=== PATIENT | female | born 1970 | race Caucasian/White ===

== ENCOUNTER 2022-07-25 13:09 | Outpatient (CLI) | payer OTHER, SELFPAY ==
[2022-07-25 13:55] LABS: Chloride* 103 mmol/L (96-114)
[2022-07-25 13:56] LABS: Potassium* 4.2 mmol/L (3.6-5.1); Sodium* 141 mmol/L (135-149)
[2022-07-25 13:58] LABS: Carbon Dioxide* 32 mmol/L (20-32); Cholesterol* 179 mg/dL (90-199); Creatinine* 0.8 mg/dL (0.5-1.5); Estimated Glomerular Filt Rate 88 ml/min
[2022-07-25 13:59] LABS: Blood Urea Nitrogen* 21 mg/dL (7-30); Calcium* 9.6 mg/dL (8.4-10.6); Glucose* 85 mg/dL (60-115); HDL Cholesterol* 66 mg/dL (>=50); LDL Cholesterol Calculated 100 mg/dL (<100); Triglycerides* 66 mg/dL (40-149)
== END 2022-07-25 13:10 | disposition home or self-care (01) ==
PROVIDERS: PCP Emergency Medicine; Visit Provider Emergency Medicine
DX: Z01.419 Encounter for gynecological examination (general) (routine) without abnormal findings (principal); Z13.6 Encounter for screening for cardiovascular disorders
CPT/HCPCS: 80048; 80061

== ENCOUNTER 2022-09-06 17:05 | Outpatient (CLI) | payer OTHER, SELFPAY ==
--- NOTE | 2022-09-06 17:15 | CRLHL7_ITS ---
For Patients: As a result of the Cures Act, medical imaging exams and procedure reports are released immediately into your electronic medical record. You may view this report before your referring provider. If you have questions, please contact your health care provider. BILATERAL DIGITAL SCREENING MAMMOGRAM WITH TOMOSYNTHESIS AND COMPUTER-AIDED DETECTION CLINICAL HISTORY: Routine screening exam. COMPARISON: 06/25/2021, 06/02/2020, 05/27/2019, 03/26/2018. TECHNIQUE: Digital mammogram in CC and MLO projections including computer-aided detection (CAD). Tomosynthesis utilized. BREAST COMPOSITION: The breasts are heterogeneously dense, which may obscure small masses. FINDINGS: RIGHT Breast: No suspicious findings. LEFT Breast: Focal asymmetric density lateral LEFT breast CC view only 10 cm from the nipple. IMPRESSION: LEFT breast asymmetry/mass. RECOMMENDATIONS: Additional mammographic views of the LEFT breast including 3D spot compression CC, 3D true lateral. LEFT breast ultrasound may also be required. BI-RADS Category 0: Incomplete: Need Additional Imaging Evaluation and/or Prior Mammograms for Comparison [facility] will contact the patient for follow-up. A lay language report of this examination will be provided to the patient. Dictated by Adner Edgar MD @ 09/07/2022 12:48:12 PM jj/Dictated by: Ander Edgar MD @ 09/07/2022 12:48:00 PM (Electronically Signed)
== END 2022-09-06 17:06 | disposition home or self-care (01) ==
LOC: MAMMO 17:06
PROVIDERS: PCP Emergency Medicine; Visit Provider Emergency Medicine
DX: Z12.31 Encounter for screening mammogram for malignant neoplasm of breast (principal); N63.20 Unspecified lump in the left breast, unspecified quadrant; R92.2 Inconclusive mammogram
CPT/HCPCS: 77063; 77067

== ENCOUNTER 2022-09-21 08:39 | Outpatient (CLI) | payer OTHER, SELFPAY ==
--- NOTE | 2022-09-21 08:45 | CRLHL7_ITS ---
For Patients: As a result of the Cures Act, medical imaging exams and procedure reports are released immediately into your electronic medical record. You may view this report before your referring provider. If you have questions, please contact your health care provider. DIGITAL DIAGNOSTIC LEFT MAMMOGRAM USING TOMOSYNTHESIS AND COMPUTER-AIDED DETECTION CLINICAL HISTORY: LEFT breast mass/asymmetry. COMPARISON: 09/06/2022. TECHNIQUE: Digital LEFT mammogram in two projections. Tomosynthesis and CAD utilized. BREAST COMPOSITION: The breast is heterogeneously dense, which may obscure small masses. FINDINGS: 3D true lateral and 3D spot compression CC LEFT breast mammogram images submitted. No suspicious masses or architectural distortion. No suspicious calcifications or adenopathy. IMPRESSION: Normal additional mammogram images LEFT breast. No evidence of malignancy. RECOMMENDATIONS: Annual BILATERAL screening mammography. Results and recommendations discussed with the patient. BI-RADS Category 2: Benign A lay language report of this examination will be provided to the patient. Dictated by Ander Edgar MD @ 09/21/2022 10:14:42 AM jj/Dictated by: Ander Edgar MD @ 09/21/2022 10:14:00 AM (Electronically Signed)
== END 2022-09-21 08:40 | disposition home or self-care (01) ==
LOC: MAMMO 08:40
PROVIDERS: PCP Emergency Medicine; Visit Provider Emergency Medicine
DX: N63.20 Unspecified lump in the left breast, unspecified quadrant (principal); R92.8 Other abnormal and inconclusive findings on diagnostic imaging of breast; R92.2 Inconclusive mammogram
CPT/HCPCS: 77065; G0279

== ENCOUNTER 2023-09-06 08:44 | Outpatient (CLI) | payer OTHER, SELFPAY | END 2023-09-06 08:45 | disposition home or self-care (01) | PROVIDERS: PCP Emergency Medicine; Visit Provider Emergency Medicine | DX: E55.9 Vitamin D deficiency, unspecified (principal); N92.6 Irregular menstruation, unspecified; Z13.220 Encounter for screening for lipoid disorders | CPT/HCPCS: 80048; 80061; 82306; 84443 ==

== ENCOUNTER 2023-09-13 07:04 | Outpatient (CLI) | payer OTHER, SELFPAY ==
--- NOTE | 2023-09-13 07:15 | CRLHL7_ITS ---
For Patients: As a result of the Century Cures Act, medical imaging exams and procedure reports are released immediately into your electronic medical record. You may view this report before your referring provider. If you have questions, please contact your health care provider. INDICATION: rt adnexa fullness COMPARISON: 08/19/2021 TECHNIQUE: 2D taylor scale and color Doppler images were acquired of the pelvis using a transabdominal and transvaginal approach. FINDINGS: Sonographic images demonstrate a normal size and smooth outer contour of the uterus. Uterus measures 8.8 cm in length by 4.9 cm in AP diameter by 5.3 cm in transverse dimension. Intramural fibroid is present in the uterine fundus measuring 1.8 x 1.8 x 1.7 cm. The endometrial lining measures 3 mm in composite thickness. Incidental echogenic focus is present adjacent to the endometrium. The right ovary measures 3.0 x 1.4 x 2.1 cm in size and the left ovary measures 3.2 x 1.4 x 1.5 cm. The ovaries demonstrate normal arterial and venous blood flow on color Doppler analysis. There are no suspicious fluid collections within the cul-de-sac. IMPRESSION: Normal right ovary. No adnexal mass, ovarian torsion or excess pelvic free fluid. Dictated by Ander Edgar MD @ 09/13/2023 10:03:18 AM (Electronically Signed)
--- NOTE | 2023-09-13 07:45 | CRLHL7_ITS ---
For Patients: As a result of the Century Cures Act, medical imaging exams and procedure reports are released immediately into your electronic medical record. You may view this report before your referring provider. If you have questions, please contact your health care provider. BILATERAL SCREENING MAMMOGRAM WITH COMPUTER-AIDED DETECTION AND TOMOSYNTHESIS TECHNIQUE: CC and MLO views were obtained. These mammographic images have been obtained using full-field digital technique. These mammographic images were interpreted with the benefit of computer-aided detection. Breast Tomosynthesis was used in this interpretation. COMPARISON FILM: 09/21/22, 09/06/22, 06/25/21. FINDINGS: There are scattered areas of fibroglandular density IMPRESSION: There is no radiographic evidence for malignancy. ASSESSMENT: BI-RADS Category 2: Benign RECOMMENDATION: Routine screening mammogram in 1 year. A lay language report of this examination will be provided to the patient. Ander Edgar M.D. Diagnostic Radiologist [email or web address] [email or web address]/Dictated by: Ander Edgar MD @ 09/14/2023 10:48:00 AM (Electronically Signed)
== END 2023-09-13 07:05 | disposition home or self-care (01) ==
LOC: US 07:05
PROVIDERS: PCP Emergency Medicine; Visit Provider Emergency Medicine
DX: N94.9 Unspecified condition associated with female genital organs and menstrual cycle (principal); Z12.31 Encounter for screening mammogram for malignant neoplasm of breast
CPT/HCPCS: 76830; 76856; 77063; 77067

== ENCOUNTER 2024-06-24 15:51 | Outpatient (CLI) | payer OTHER, SELFPAY | END 2024-06-24 15:52 | disposition home or self-care (01) | LOC: NFLDREF 06-28 21:08 | PROVIDERS: PCP Emergency Medicine; Referring Provider Emergency Medicine; Visit Provider Emergency Medicine | DX: R73.09 Other abnormal glucose (principal); R79.89 Other specified abnormal findings of blood chemistry; R00.2 Palpitations | CPT/HCPCS: 82565; 84443 ==

== ENCOUNTER 2024-10-01 08:59 | Outpatient (CLI) | payer OTHER, SELFPAY | END 2024-10-01 09:00 | disposition home or self-care (01) | PROVIDERS: PCP Emergency Medicine; Visit Provider Emergency Medicine | DX: E55.9 Vitamin D deficiency, unspecified (principal); R79.89 Other specified abnormal findings of blood chemistry; R59.0 Localized enlarged lymph nodes; Z13.1 Encounter for screening for diabetes mellitus; Z13.6 Encounter for screening for cardiovascular disorders | CPT/HCPCS: 80061; 82947; 86140 ==

== ENCOUNTER 2024-10-02 15:12 | Outpatient (CLI) | payer OTHER, SELFPAY | END 2024-10-02 15:13 | disposition home or self-care (01) | LOC: MAMMO 15:13 | PROVIDERS: PCP Emergency Medicine; Visit Provider Emergency Medicine | DX: Z12.31 Encounter for screening mammogram for malignant neoplasm of breast (principal); N63.20 Unspecified lump in the left breast, unspecified quadrant; R92.333 Mammographic heterogeneous density, bilateral breasts | CPT/HCPCS: 77063; 77067 ==

== ENCOUNTER 2024-10-14 08:40 | Outpatient (CLI) | payer OTHER, SELFPAY | END 2024-10-14 08:41 | disposition home or self-care (01) | LOC: MAMMO 08:40 | PROVIDERS: PCP Emergency Medicine; Visit Provider Emergency Medicine | DX: N63.20 Unspecified lump in the left breast, unspecified quadrant (principal); R92.8 Other abnormal and inconclusive findings on diagnostic imaging of breast | CPT/HCPCS: 76642; 77065; G0279 ==

== ENCOUNTER 2025-02-04 11:47 | Outpatient (CLI) | payer OTHER, SELFPAY | END 2025-02-04 11:48 | disposition home or self-care (01) | PROVIDERS: PCP Emergency Medicine; Visit Provider Emergency Medicine | DX: R10.13 Epigastric pain (principal); Z13.810 Encounter for screening for upper gastrointestinal disorder | CPT/HCPCS: 82784; 86140; 86231; 86258; 86364 ==